=== PATIENT | male | born 1990 | race Caucasian/White ===

== ENCOUNTER 2017-08-01 15:48 | Emergency (ER) | payer SELFPAY ==
--- NOTE | 2017-08-01 17:01 | ED Physician Documentation ---
Seizure - HISTORIAN Historian: patient - HPI Stated Complaint: seizure Chief Complaint: Seizure Additional Information: Brought by EMS. States his roommate heard him fall in the bathroom, and witnessed seizure ativity, <1 minute. History of seizures (with etoh) (he drank today) but not currently taking seizure medicine. Evasive with answers. hasn't had seizure meds in 8-9 months. had similar episode 2 weeks ago at work and injured his face, was taken to [facility] but they didn't prescribe him any seizure meds. He said they didn't tell him to follow up with anyone. He has no injuries today. Feels back to normal at this time. Timing/Onset/Duration: single episode, details cant be verified Last known Well Date: 08/01/17 Last Known Well Time: 17:01 Last known Well Code/Unknown Code: Known Witnessed By: friend Preceding Symptoms: none Character of Seizure(s): "shaking all over" Postictal Symptoms: none Location of Injury: none Further Comments: no - ROS NEURO/PSYCH: denies: headache, fainting, dizziness EYES/ENT: none CVS/RESP: none GI/: denies: adominal pain, nausea, vomiting MS/SKIN/LYMPH: none - PAST HX Previous seizure/seizure disorder: occasional Etiology: ethanol abuse Other History: none Surgeries/Procedures: none Allergies/Adverse Reactions: Allergies Allergy/AdvReac Type Severity Reaction Status Date / Time No Allergy Information Allergy Unverified 08/01/17 16:22 Available Home Medications: Ambulatory Orders Medication Instructions Recorded NK [NK] 08/01/17 - SOCIAL HX Smoking History: chew Alcohol Use: occasionally Drug Use: none - FAMILY HX Family History: none - VITAL SIGNS Vital Signs: Vital Signs Temp Pulse Resp BP Pulse Ox 98.6 F 92 H 20 144/91 98 08/01/17 15:48 08/01/17 15:48 08/01/17 15:48 08/01/17 15:48 08/01/17 15:48 - REVIEWED ASSESSMENTS Nursing Assessment Reviewed: Yes Vitals Reviewed: Yes Progress - Results/Orders Results/Orders: he doesn't know what seizure medicine he had taken in he past, he said he quit when he went off his parents insurance 8-9 months ago. has not seen a neurologist in years. I'll try to convince him to follow up with a neurologist and get back on medication. Seizure Physical Exam - Physical Exam General Appearance: no acute distress, alert Altered Mental Status Higher Functions: alert, oriented x3, no evidence of acute CVA, mood/affect nml (flat) EENT: nml eye inspection, PERRL. No: swelling, ecchymosis Neck/Back: normal inspection Respiratory: no resp. distress CVS: reg rate & rhythm Abdomen: non-tender Skin: warm/dry, normal color Extremities: normal range of motion, normal inspection Observed Seizure Activity in ED: other (none) Discharge Clincal Impression: Seizure disorder Referrals: Primary Doctor,No [Primary Care Provider] - 2 Days Condition: Stable Disposition: 01 HOME, SELF-CARE Decision to Admit: NO Date of Decison to Admit: 08/01/17 Decision Time: 17:05
[2017-08-01 17:20] VITALS: BP 129/81
== END 2017-08-01 17:18 | disposition home or self-care (01) ==
LOC: ED 15:48
DX: G40.909 Epilepsy, unspecified, not intractable, without status epilepticus (principal)
CPT/HCPCS: 99284

== ENCOUNTER 2017-08-12 09:44 | Emergency (ER) | payer SELFPAY ==
--- NOTE | 2017-08-12 09:49 | ED Physician Documentation ---
Seizure - HISTORIAN Historian: patient - HPI Stated Complaint: seizure Chief Complaint: Seizure Additional Information: He has had two recently both associated with drinking He is not sure of when his last med dose was He said he was seeing a neurologist then later in discussion said he did see Dr Powers and this appt is being set up He feels he still has a headache No injury Timing/Onset/Duration: unknown duration Last known Well Date: 08/12/17 Last Known Well Time: 08:00 Last known Well Code/Unknown Code: Unknown Witnessed By: other (he is living in a well house ) Preceding Symptoms: none Activity Prior to Seizure: he did drink last night Character of Seizure(s): unresponsiveness, "shaking all over". denies: lost consciousness, didn't regain between seizure, incontinence of urine, incontinence of stool, stopped breathing, lost pulse Postictal Symptoms: confusion (quickly regained ) - ROS NEURO/PSYCH: headache. denies: dizziness, anxiety, depression EYES/ENT: none CVS/RESP: none GI/: vomiting. denies: adominal pain, nausea MS/SKIN/LYMPH: none - PAST HX Previous seizure/seizure disorder: other (with drinking primarily ) Other History: none Surgeries/Procedures: none Immunizations: referred to PCP Allergies/Adverse Reactions: Allergies Allergy/AdvReac Type Severity Reaction Status Date / Time No Allergy Information Allergy Unverified 08/01/17 16:22 Available Home Medications: Ambulatory Orders Medication Instructions Recorded NK [NK] 08/01/17 - SOCIAL HX Smoking History: cigarettes Alcohol Use: heavy Drug Use: none - FAMILY HX Family History: none - VITAL SIGNS Vital Signs: Vital Signs Temp Pulse Resp BP Pulse Ox 98 F 100 H 18 137/87 98 08/12/17 09:45 08/12/17 09:45 08/12/17 09:45 08/12/17 09:45 08/12/17 09:45 - REVIEWED ASSESSMENTS Nursing Assessment Reviewed: Yes Vitals Reviewed: Yes ED Results Lab/Radiology - Lab Results Lab Results: Lab Results 08/12/17 08/12/17 09:56 09:56 WBC 12.00 K/ul K/ul (4.00-12.00) RBC 4.74 M/ul M/ul (3.90-5.20) Hgb 14.8 g/dL g/dL (12.0-18.0) Hct 44.4 % % (37.0-53.0) MCV 93.8 fl fl (80.0-100.0) MCH 31.1 pg pg (28.0-34.0) MCHC 33.2 g/dL g/dL (30.0-36.0) RDW 12.8 % % (11.3-14.3) Plt Count 224 K/mm3 K/mm3 (130-400) Neut % (Auto) 70.5 % % (39.0-79.0) Lymph % (Auto) 19.4 % % (16.0-50.0) [place] % (Auto) 4.8 % % (0.0-11.0) Eos % (Auto) 2.5 % % (0.0-6.8) Baso % (Auto) 0.8 (0.0-1.5) Neut # (Auto) 8.4 # k/uL H # k/uL (1.4-7.7) Lymph # (Auto) 2.3 # k/uL # k/uL (0.6-4.0) [place] # (Auto) 0.6 # k/uL # k/uL (0.0-0.9) Eos # (Auto) 0.3 # k/uL # k/uL (0.0-0.6) Baso # (Auto) 0.1 # k/uL # k/uL (0.0-0.5) Reactive Lymphs % 2.0 % % (0.0-5.0) Reactive Lymphs # 0.2 # k/uL # k/uL (0.0-0.8) Sodium 129 mmol/L L mmol/L (137-145) Potassium 3.7 mmol/L mmol/L (3.5-5.1) Chloride 96 mmol/L L mmol/L (98-107) Carbon Dioxide 18 mmol/L L mmol/L (22-30) BUN 8 mg/dL L mg/dL (9-20) Creatinine 0.60 mg/dL L mg/dL (0.66-1.25) Estimated Creat Clear 227 Est GFR ( Amer) > 60 (60 - ) Est GFR (Non-Af Amer) > 60 (60 - ) Glucose 111 mg/dL H mg/dL (74-106) Calcium 9.5 mg/dL mg/dL (8.4-10.2) Total Bilirubin 0.6 mg/dL mg/dL (0.2-1.3) AST 54 U/L H U/L (15-46) ALT 32 U/L U/L (13-69) Alkaline Phosphatase 66 U/L U/L (38-126) Total Protein 7.1 g/dL g/dL (6.3-8.2) Albumin 4.3 g/dL g/dL (3.5-5.0) - Orders Orders: ED Orders Category Date Time Status Place IV Lock 1T Care 08/12/17 09:51 Active CBC/PLATELET/DIFF Routine Lab 08/12/17 09:56 Completed CMP [CMP] Routine Lab 08/12/17 09:56 Completed DRUG SCREEN URINE MEDICAL ONLY Routine Lab 08/12/17 Ordered 0.9 % Sodium Chloride [Normal Saline] 1,000 ml Med 08/12/17 10:26 Active IV Q1H Ibuprofen [Advil] Med 08/12/17 09:52 Discontinued 600 mg PO NOW ONE Seizure Physical Exam - Physical Exam General Appearance: no acute distress Altered Mental Status Higher Functions: alert, abnml respond to command (He did not know date thought it was Monday - after discussion knows the day is Sat ), eyes open, slow to respond, disoriented. No: abnml response to pain, aphasic EENT: nml eye inspection, PERRL Neck/Back: normal inspection Respiratory: no resp. distress, breath sounds nml, no evidence of rib injury CVS: reg rate & rhythm, heart sounds normal, equal pulses, no murmur Abdomen: non-tender, no organomegaly, nml bowel sounds, no distention Skin: warm/dry, normal color Extremities: normal range of motion, non-tender, normal inspection Observed Seizure Activity in ED: other (none witnessed ) - Nexus Criteria Neg Nexus Criteria: altered mental status, recent ETOH Discharge Clincal Impression: Seizure Referrals: Primary Doctor,Doris [Primary Care Provider] - 2 Days Comments: encouraged him to drink fluids - take meds and follow up NO DRINKING ALCOHOL Condition: Stable Disposition: 01 HOME, SELF-CARE Decision to Admit: NO Date of Decison to Admit: 08/12/17 Decision Time: 11:16
[2017-08-12] MEDS ORDERED: IBUPROFEN 200 MG TABLET PO ONE (09:52)
[2017-08-12 10:01] LABS: BASOPHILS % 0.8 (0.0-1.5); EOSINOPHILS % 2.5 % (0.0-6.8); MEAN CORPUSCULAR HEMOGLOBIN 31.1 pg (28.0-34.0); MEAN CORPUSCULAR VOLUME 93.8 fl (80.0-100.0); MONOCYTES % 4.8 % (0.0-11.0); NEUTROPHILS # 8.4 # k/uL (1.4-7.7)
[2017-08-12 10:18] LABS: eGFR (African) > 60; eGFR (Non-African) > 60
[2017-08-12] MEDS ORDERED: 0.9 % SODIUM CHLORIDE 1,000 ML IV ONE (10:26)
[2017-08-12 11:21] VITALS: BP 141/90
== END 2017-08-12 11:20 | disposition home or self-care (01) ==
LOC: ED 09:44
DX: G40.909 Epilepsy, unspecified, not intractable, without status epilepticus (principal)
CPT/HCPCS: 80053; 85025; J7030; 96360; 99283; S1016

== ENCOUNTER 2017-11-19 14:40 | Observation (INO) | payer SELFPAY ==
[2017-11-19] MEDS ORDERED: 0.9 % SODIUM CHLORIDE 1,000 ML IV ONE ×3 (14:41→16:02)
[2017-11-19] MEDS ORDERED: MVI, ADULT NO.1 WITH VIT K 10 ML VIAL IV ONE (14:41)
[2017-11-19] MEDS ORDERED: FOLIC ACID 5 MG/1 ML ONE (14:41)
[2017-11-19] MEDS ORDERED: THIAMINE HCL 100 MG/ML 2ML VIAL ONE (14:41)
--- NOTE | 2017-11-19 14:44 | ED Physician Documentation ---
General Adult - HISTORIAN Historian: patient - HPI Stated Complaint: alcohol intoxication Chief Complaint: Overdose Onset: hours (2) Timing: still present Severity: mild Further Comments: yes (he is intoxicated. He thinks he drank a 5th of some alcohol starting at about noon. He denies any complaints) Last known Well Code/Unknown Code: Unknown - ROS CONST: no problems - PAST HX Past History: other (seizures ) Surgeries/Procedures: none Immunizations: UTD Allergies/Adverse Reactions: Allergies Allergy/AdvReac Type Severity Reaction Status Date / Time No Allergy Information Allergy Unverified 08/01/17 16:22 Available Home Medications: Ambulatory Orders Medication Instructions Recorded NK [NK] 08/01/17 - SOCIAL HX Smoking History: non-smoker Alcohol Use: none Drug Use: none - FAMILY HX Family History: No - VITAL SIGNS Vital Signs: Vital Signs Temp Pulse Resp BP Pulse Ox 141/90 08/12/17 11:20 - REVIEWED ASSESSMENTS Nursing Assessment Reviewed: Yes Vitals Reviewed: Yes Progress - Progress Progress: 1512: resting quietly in the room. DG 1630: will admit pt due to alcohol level DG ED Results Lab/Radiology - Orders Orders: ED Orders Category Date Time Status 0.9 % Sodium Chloride [Normal Saline] 1,000 ml Med 11/19/17 14:41 Discontinued IV .STK-MED Folic Acid [Folvite] Med 11/19/17 14:41 Discontinued 5 mg .ROUTE .STK-MED ONE Mvi, Adult No.1 with Vit K [M.v.i. Adult] Med 11/19/17 14:41 Discontinued 10 ml IV .STK-MED ONE Thiamine HCl Med 11/19/17 14:41 Discontinued 200 mg .ROUTE .STK-MED ONE General Adult Physical Exam - PHYSICAL EXAM GENERAL APPEARANCE: no distress EENT: eye inspection normal NECK: normal inspection RESPIRATORY: no resp distress, chest non-tender, breath sounds normal CVS: reg rate & rhythm, heart sounds normal, equal pulses, no murmur ABDOMEN: soft, no organomegaly, normal bowel sounds BACK: normal inspection SKIN: warm/dry, normal color EXTREMITIES: non-tender, normal range of motion NEURO: oriented X3, CN's nml as tested, motor nml, sensation nml Discharge Clincal Impression: Alcohol intoxication Qualifiers: Complication of substance-induced condition: with unspecified complication Qualified Code(s): F10.929 - Alcohol use, unspecified with intoxication, unspecified Referrals: Primary Doctor,No [Primary Care Provider] - 2 Days Condition: Stable Disposition: 09 ADMITTED INPATIENT Decision to Admit: [id number] Date of Decison to Admit: 11/19/17 Decision Time: 16:39
[2017-11-19 14:58] LABS: BASOPHILS % 1.7 (0.0-1.5); EOSINOPHILS % 2.7 % (0.0-6.8); MEAN CORPUSCULAR HEMOGLOBIN 32.2 pg (28.0-34.0); MEAN CORPUSCULAR VOLUME 95.8 fl (80.0-100.0); MONOCYTES % 5.7 % (0.0-11.0); NEUTROPHILS # 2.8 # k/uL (1.4-7.7)
[2017-11-19] MEDS ORDERED: THIAMINE HCL 100 MG, MVI, ADULT NO.1 WITH VIT K 10 ML, FOLIC ACID 5 MG in 0.9 % SODIUM ... IV SCH ×4 (15:00)
[2017-11-19 15:19] LABS: eGFR (African) > 60; eGFR (Non-African) > 60
[2017-11-19] MEDS ORDERED: ONDANSETRON HCL/PF 4 MG/ 2ML VIAL IVP PRN (17:10)
[2017-11-19] MEDS: 0.9 % SODIUM CHLORIDE 1,000 ML IV SCH ×2 (17:22→22:10)
[2017-11-19] MEDS: NICOTINE 14mg PATCH.TD24 TD SCH (17:23)
[2017-11-19 18:05] VITALS: BMI 23.1
[2017-11-20] MEDS: NICOTINE 14mg PATCH.TD24 TD SCH (08:59)
[2017-11-20 10:11] LABS: eGFR (African) > 60; eGFR (Non-African) > 60
--- NOTE | 2017-11-20 10:24 | Discharge Summary ---
Discharge Summary - Discharge Sumary History of Present Illness: 26 yo male admitted observation for acute alcohol intoxication. Pt reported to ER drunk, reported to be homeless. Reported he drank a fifth of vodka. EtOh > 500 however. This morning, pt sober, feeling well. Etoh <10. No withdrawal symptoms noted on exam. Condition at Discharge: Stable Home Medications: Ambulatory Orders Medication Instructions Recorded NK [NK] 08/01/17 Consultations this Visit: None Procedures this Visit: None Allergies/Adverse Reactions: Allergies Allergy/AdvReac Type Severity Reaction Status Date / Time ondansetron HCl Allergy Unknown Hives Verified 11/19/17 17:34 [From Zofran (as hydrochloride)] Patient Problems: Current Active Problems Problem Status Onset Alcohol intoxication Acute Discharge Summary: Pt admitted for acute alcohol intoxication. Pt admits to being a alcoholic. Reports increased stress over the last week and began to drink heavily 1 day prior to admission. Reported to be homeless. From [place], [place] but has livedi [facility] for about a year, but lost his home a week ago. No purposeful harm to self reported. Will d/c home, medically clear to be discharged. Parents contacted in [place], [place], arrangements being made for safe discharge from this facility
[2017-11-20 12:54] VITALS: BP 120/60
== END 2017-11-20 12:05 | disposition home or self-care (01) ==
LOC: ED 14:40 → SOUTH 16:40
PROVIDERS: ADMIT Nurse Practitioner Family; ATTEND Nurse Practitioner Family
DX: F10.929 Alcohol use, unspecified with intoxication, unspecified (principal)
CPT/HCPCS: 36415; 80053; 80320; 85025; G0378; J3411; J3490; J7030; 96365; 99217; 99283; 99284; G0480; S1016